=== PATIENT | female | born 1995 | race Caucasian/White ===

== ENCOUNTER 2018-01-31 15:14 | Emergency (ER) | payer OTHER, MEDICAID ==
[~2018-01-31] VITALS: Ht 149.9 cm; Wt 58.6 kg
[~2018-01-31 15:14] MED LIST: ASPI-621 PO; PRED10TA PO
[2018-01-31 17:41] VITALS: BP 108/72
== END 2018-01-31 18:52 | disposition home or self-care (01) ==
LOC: ED 16:45
DX: R51 Headache (principal)
CPT/HCPCS: 70250; 70450; 71045; 72040; 74018; 99284

== ENCOUNTER 2018-07-24 10:05 | Day surgery (SDC) | payer OTHER, MEDICAID ==
[~2018-07-24] VITALS: Ht 149.9 cm; Wt 54.8 kg
[~2018-07-24 10:05] MED LIST changes: -ASPI-621 PO; +ASPI81TA45 PO
[2018-07-24] MEDS ORDERED: LACTATED RINGERS 1,000 ML IV SCH (10:33)
[2018-07-24 10:59] VITALS: BP 121/83
[2018-07-24] MEDS ORDERED: LIDOCAINE-MPF 1%, 2ML INFIL ONE (11:00)
[2018-07-24] MEDS ORDERED: PLEASE ENTER HEIGHT AND WEIGHT MC SCH (11:00)
[2018-07-24 11:02] LABS: HCG UR SG 1.001 (1.003-1.030)
[2018-07-24] MEDS ORDERED: HYDR-3059 PO (11:16)
[2018-07-24] MEDS ORDERED: CELE400C PO (11:16)
[2018-07-24] MEDS ORDERED: CITA20TA6 PO (11:16)
[2018-07-24] MEDS ORDERED: LEVO50TA PO (11:16)
[2018-07-24] MEDS ORDERED: PROPOFOL 10 MG/ML, 50ML ONE (12:15)
[2018-07-24] MEDS ORDERED: ALBUTEROL SULFATE 2.5 MG/3 ML ONE (13:49)
[2018-07-24] MEDS ORDERED: ALBUTEROL SULFATE 2.5 MG/3 ML NPPB PRN (14:00)
== END 2018-07-24 15:50 | disposition home or self-care (01) ==
LOC: OUT 10:05
PROVIDERS: ATTEND Internal Medicine
DX: D12.6 Benign neoplasm of colon, unspecified (principal); D12.0 Benign neoplasm of cecum; D12.8 Benign neoplasm of rectum; K31.7 Polyp of stomach and duodenum; E03.9 Hypothyroidism, unspecified; Z79.890 Hormone replacement therapy; Z79.1 Long term (current) use of non-steroidal anti-inflammatories (NSAID); Z86.010 Personal history of colon polyps; Z86.73 Personal history of transient ischemic attack (TIA), and cerebral infarction without residual deficits; Z98.890 Other specified postprocedural states; Z80.8 Family history of malignant neoplasm of other organs or systems
CPT/HCPCS: 43239; 45380; 81025; 88305; 94640; J2704; J7613

== ENCOUNTER 2018-11-12 17:33 | Inpatient (IN) | payer OTHER, MEDICAID ==
[~2018-11-12] VITALS: Ht 149.9 cm; Wt 61.2 kg
[~2018-11-12 17:33] MED LIST changes: +CELE400C PO; +CITA20TA6 PO; +HYDR-3059 PO; +LEVO50TA PO
--- NOTE | 2018-11-12 17:55 | NUR ---
PATIENT PRESENTS TO ED TODAY FOR WORSENING PAIN AFTER COLECTOMY LAST WEEK. AWAITING MD ORDERS, CALL LIGHT WITHIN REACH. MOTHER AT BEDSIDE.
[2018-11-12] MEDS ORDERED: ONDANSETRON 2MG/ML, 2ML ONE (18:51)
[2018-11-12] MEDS ORDERED: MORPHINE SULFATE 4 MG/ML, 1ML ONE (18:52)
[2018-11-12] MEDS ORDERED: ONDANSETRON 2MG/ML, 2ML IVPush ONE (19:00)
[2018-11-12] MEDS ORDERED: SODIUM CHLORIDE FLUSH 10ML SYR IVF ONE (19:00)
[2018-11-12] MEDS ORDERED: MORPHINE SULFATE 4 MG/ML, 1ML IVPush PRN (19:00)
--- NOTE | 2018-11-12 19:05 | NUR ---
Pt medicated per may. States pain not decreased still. Pt tachycardic. aware. Awaiting new orders. Vs otherwise stable.
[2018-11-12] MEDS ORDERED: SODIUM CHLORIDE 0.9% 1,000ML IVBOLUS ONE (19:30)
[2018-11-12 19:32] LABS: BASOPHILS # (AUTO) 0.04 x10^3/uL (0-0.1); BASOPHILS % (AUTO) 0 % (0-1); EOSINOPHILS % (AUTO) 5 % (1-7); LYMPHOCYTES # (AUTO) 1.22 x10^3/uL (1-3.4); LYMPHOCYTES % (AUTO) 9 % (22-44); MD NO; MEAN CORPUSCULAR HEMOGLOBIN 29.5 pg (27.0-34.8); MEAN CORPUSCULAR HGB CONC 33.2 g/dL (32.4-35.8); MEAN CORPUSCULAR VOLUME 88.7 fL (80-100); MEAN PLATELET VOLUME 7.6 fL (7.4-10.4); MONOCYTES # (AUTO) 1.05 x10^3/uL (0.2-0.8); MONOCYTES % (AUTO) 8 % (2-9); NEUTROPHILS # (AUTO) 10.16 x10^3/uL (1.8-6.8); NEUTROPHILS % (AUTO) 78 % (42-75); PLATELET COUNT 472 x10^3/uL (130-400); RED BLOOD COUNT 3.82 x10^6/uL (3.82-5.3)
[2018-11-12 19:35] LABS: ALBUMIN 2.8 g/dL (3.4-5.0); ANION GAP 7 mmol/L (5-15); CHLORIDE 104 mmol/L (98-107)
--- NOTE | 2018-11-12 19:50 | NUR ---
Pt states a decrease in pain and appears to be resting comfortably on gurney watching tv. Mother still at bedside. Awaiting ct.
--- NOTE | 2018-11-12 20:10 | NUR ---
Back from ct. Given warm blanket per request. No other immediate needs.
--- NOTE | 2018-11-12 22:07 | NUR ---
ordered 2 more cts. Awaiting cts at this time.
[2018-11-12] MEDS ORDERED: GASTROGRAFIN 120 ML SOLN PO ONE (22:17)
[2018-11-12] MEDS ORDERED: PIPERACILLIN/TAZO/PMX 3.375GM 50 ML ONE (22:41)
[2018-11-12] MEDS ORDERED: PIPERACILLIN/TAZO/PMX 3.375GM 50 ML IV ONE (23:00)
[2018-11-12] MEDS ORDERED: BUPIVACAINE/PF 0.5% ONE (23:56)
[2018-11-12] MEDS ORDERED: EPINEPHRINE 1 MG/ML, 1ML ONE (23:57)
[2018-11-13] VITALS (7 sets, daily range): BP systolic 112–138; BP diastolic 64–94
[2018-11-13] MEDS ORDERED: HYDROCORTISONE 100 MG INJ. ONE (00:33)
[2018-11-13] MEDS ORDERED: FENTANYL PF 250 MCG/5ML ONE (00:35)
[2018-11-13] MEDS ORDERED: SUGAMMADEX 200 MG/2 ML IVPush ONE (00:35)
[2018-11-13] MEDS ORDERED: LIDOCAINE GEL 2%, 5ML ONE (00:36)
[2018-11-13] MEDS ORDERED: BUPIVACAINE/PF-EPI 0.5% 1:200K INFIL ONE (01:23)
[2018-11-13] MEDS ORDERED: DIAZEPAM 5 MG/ML, 2ML IVPush PRN (01:30)
[2018-11-13] MEDS ORDERED: HYDROmorphone 2 MG/ML, 1ML IVPush PRN (01:30)
[2018-11-13] MEDS ORDERED: MIDAZOLAM 1 MG/ML, 2ML IV PRN (01:30)
[2018-11-13] MEDS ORDERED: SCOPOLAMINE PATCH, 1.5MG PATCH.TD72 TD PRN (01:30)
[2018-11-13] MEDS ORDERED: PROMETHAZINE 25 MG/ML, 1ML IV PRN (01:30)
[2018-11-13] MEDS ORDERED: MEPERIDINE/PF 25MG/ML,1ML IVPush PRN (01:30)
[2018-11-13] MEDS ORDERED: ALBUTEROL/IPRATROPIUM 2.5MG/0.5MG, 3 ML NPPB PRN (01:30)
[2018-11-13] MEDS ORDERED: METOPROLOL 1 MG/ML, 5ML IV PRN (01:30)
[2018-11-13] MEDS ORDERED: hydrALAzine 20 MG/ML, 1ML IV PRN ×2 (01:30→05:00)
[2018-11-13] MEDS ORDERED: ONDANSETRON 2MG/ML, 2ML IV PRN ×2 (01:30→05:00)
[2018-11-13] MEDS ORDERED: FENTANYL PF 100 MCG/2ML IV PRN (01:30)
[2018-11-13] MEDS ORDERED: SUCCINYLCHOLINE 20 MG/ML, 10ML ONE (01:45)
[2018-11-13] MEDS ORDERED: ROCURONIUM 10MG/ML,5ML ONE (01:45)
[2018-11-13] MEDS ORDERED: ONDANSETRON 2MG/ML, 2ML ONE (01:45)
[2018-11-13] MEDS ORDERED: PROPOFOL 10 MG/ML, 20ML ONE (01:45)
[2018-11-13] MEDS ORDERED: METOPROLOL 1 MG/ML, 5ML ONE (03:30)
[2018-11-13] MEDS ORDERED: DIPHENHYDRAMINE 25 MG CAPSULE PO PRN (05:00)
[2018-11-13] MEDS ORDERED: DIPHENHYDRAMINE 50 MG/ML, 1ML IV PRN (05:00)
[2018-11-13] MEDS ORDERED: LORazepam 2 MG/ML, 1ML IV PRN (05:00)
[2018-11-13] MEDS ORDERED: KETOROLAC 30 MG/1 ML IV PRN (05:00)
[2018-11-13] MEDS ORDERED: LORazepam 1MG TABLET PO PRN (05:00)
[2018-11-13] MEDS ORDERED: ACETAMINOPHEN 650 MG SUPP PR PRN (05:00)
[2018-11-13] MEDS ORDERED: ACETAMINOPHEN 325 MG TABLET PO PRN (05:00)
[2018-11-13] MEDS ORDERED: morphine SULFATE 10 MG/ML, 1ML IV PRN (05:00)
[2018-11-13] MEDS ORDERED: DO NOT STOP ANTIBIOTICS AFTER 24HRS MC SCH (05:00)
[2018-11-13] MEDS ORDERED: ENALAPRILAT 1.25 MG/ML, 2ML IV PRN (05:00)
[2018-11-13] MEDS: PIPERACILLIN/TAZO/PMX 3.375GM 50 ML IV SCH ×4 (05:06→22:55)
[2018-11-13 06:16] LABS: MEAN CORPUSCULAR HEMOGLOBIN 28.9 pg (27.0-34.8); MEAN CORPUSCULAR HGB CONC 32.6 g/dL (32.4-35.8); MEAN CORPUSCULAR VOLUME 88.6 fL (80-100); MEAN PLATELET VOLUME 7.7 fL (7.4-10.4); PLATELET COUNT 538 x10^3/uL (130-400); RED BLOOD COUNT 4.04 x10^6/uL (3.82-5.3); RED CELL DISTRIBUTION WIDTH 16.1 % (9.6-15.2)
[2018-11-13 06:22] LABS: ALBUMIN 1.6 g/dL (3.4-5.0); ANION GAP 7 mmol/L (5-15); CALCIUM 7.7 mg/dL (8.5-10.1); CHLORIDE 109 mmol/L (98-107); CREATININE 0.63 mg/dL (0.55-1.02)
[2018-11-13 06:40] LABS: BASOPHILS # (AUTO) 0.01 x10^3/uL (0-0.1); BASOPHILS % (AUTO) 0 % (0-1); EOSINOPHILS # (AUTO) 0.15 x10^3/uL (0-0.4); EOSINOPHILS % (AUTO) 1 % (1-7); LYMPHOCYTES # (AUTO) 1.28 x10^3/uL (1-3.4); LYMPHOCYTES % (AUTO) 8 % (22-44); MD SCAN; MONOCYTES # (AUTO) 0.84 x10^3/uL (0.2-0.8); MONOCYTES % (AUTO) 5 % (2-9); NEUTROPHILS # (AUTO) 13.81 x10^3/uL (1.8-6.8); NEUTROPHILS % (AUTO) 86 % (42-75)
[2018-11-13] MEDS: LACTATED RINGERS 1,000 ML IV SCH ×2 (08:38→15:30)
[2018-11-13] MEDS: ENOXAPARIN 40 MG/0.4 ML SQ SCH (08:38)
[2018-11-13] MEDS ORDERED: SODIUM CHLORIDE 0.9% 1,000ML IVBOLUS ONE ×2 (10:30→20:00)
[2018-11-13] MEDS ORDERED: TPN PER PHARMACY MC PRN (16:00)
[2018-11-13] MEDS ORDERED: MAGNESIUM SULFATE PMX 2GM/50ML 50 ML IVPB ONE (16:03)
[2018-11-13] MEDS ORDERED: FILTER, DISP 1.2 MICRON FOR TPN/PVN IV PRN (16:30)
[2018-11-13] MEDS ORDERED: AMINO ACID 10% IV SCH (17:00)
[2018-11-13] MEDS ORDERED: DEXTROSE 10% 500 ML IV PRN (17:00)
[2018-11-13] MEDS ORDERED: DEXTROSE 50%, 50ML SYRINGE IVPush PRN (17:00)
[2018-11-13] MEDS ORDERED: FAT EMUL IV SCH (17:00)
[2018-11-13] MEDS ORDERED: SMOF TPN IV SCH (17:00)
[2018-11-13] MEDS ORDERED: [UNRECOGNIZED DRUG - OTHER] IV SCH (17:00)
[2018-11-13] MEDS ORDERED: DEXTROSE 70% IV SCH (17:00)
[2018-11-13] MEDS: INSULIN REGULAR LOW DOSE Q6H X 48HRS SQ-INSULIN SCH (21:30)
[2018-11-13] MEDS ORDERED: BENZOCAINE AEROSOL SPRAY 20%, 60ML TP ONE (23:00)
[2018-11-14] VITALS (12 sets, daily range): BP systolic 102–128; BP diastolic 45–81
[2018-11-14] MEDS: LACTATED RINGERS 1,000 ML IV SCH ×2 (00:43→17:12)
[2018-11-14] MEDS: INSULIN REGULAR LOW DOSE Q6H X 48HRS SQ-INSULIN SCH ×4 (03:26→20:27)
[2018-11-14 03:30] LABS: ALANINE AMINOTRANSFERASE 19 U/L (12-78); ALBUMIN 1.3 g/dL (3.4-5.0); ANION GAP 3 mmol/L (5-15); CALCIUM 7.2 mg/dL (8.5-10.1); CHLORIDE 112 mmol/L (98-107); CREATININE 0.89 mg/dL (0.55-1.02)
[2018-11-14 03:34] LABS: ALKALINE PHOSPHATASE 96 U/L (45-117); BILIRUBIN,TOTAL 0.2 mg/dL (0.2-1.0); PREALBUMIN 8.4 mg/dL (20.0-40.0); TOTAL PROTEIN 4.7 g/dL (6.4-8.2); TRIGLYCERIDES 242 mg/dL (50-200)
[2018-11-14] MEDS: PIPERACILLIN/TAZO/PMX 3.375GM 50 ML IV SCH ×4 (05:08→22:46)
[2018-11-14] MEDS ORDERED: FUROSEMIDE 20 MG/2 ML IV ONE ×2 (05:30→09:30)
[2018-11-14] MEDS: ENOXAPARIN 40 MG/0.4 ML SQ SCH (09:11)
[2018-11-14] MEDS ORDERED: DEXTROSE 70% IV SCH (17:00)
[2018-11-14] MEDS ORDERED: AMINO ACID 10% IV SCH (17:00)
[2018-11-14] MEDS ORDERED: SMOF TPN IV SCH (17:00)
[2018-11-14] MEDS ORDERED: FAT EMUL IV SCH (17:00)
[2018-11-14] MEDS ORDERED: [UNRECOGNIZED DRUG - OTHER] IV SCH (17:00)
[2018-11-15] MEDS: LACTATED RINGERS 1,000 ML IV SCH (02:29)
[2018-11-15] MEDS: INSULIN REGULAR LOW DOSE Q6H X 48HRS SQ-INSULIN SCH ×3 (03:00→15:58)
[2018-11-15 04:04] LABS: ANION GAP 3 mmol/L (5-15); CALCIUM 7.8 mg/dL (8.5-10.1); CHLORIDE 101 mmol/L (98-107); CREATININE 0.57 mg/dL (0.55-1.02)
[2018-11-15 04:07] VITALS: BP 110/71
[2018-11-15] MEDS: PIPERACILLIN/TAZO/PMX 3.375GM 50 ML IV SCH ×4 (04:47→22:58)
[2018-11-15 06:30] VITALS: BP 113/75
[2018-11-15] MEDS: ENOXAPARIN 40 MG/0.4 ML SQ SCH (08:43)
[2018-11-15 13:07] VITALS: BP 119/75
[2018-11-15] MEDS ORDERED: AMINO ACID 10% IV SCH (17:00)
[2018-11-15] MEDS ORDERED: [UNRECOGNIZED DRUG - OTHER] IV SCH (17:00)
[2018-11-15] MEDS ORDERED: FAT EMULSIONS IV SCH (17:00)
[2018-11-15] MEDS ORDERED: DEXTROSE 70% IV SCH (17:00)
[2018-11-15] MEDS: FILTER, DISP 1.2 MICRON FOR TPN/PVN IV PRN (17:16)
[2018-11-15 18:39] VITALS: BP 119/69
[2018-11-15] MEDS: INSULIN REGULAR LOW DOSE QDAY SQ-INSULIN SCH (21:00)
[2018-11-16 03:35] VITALS: BP 129/83
[2018-11-16] MEDS: LACTATED RINGERS 1,000 ML IV SCH (05:08)
[2018-11-16] MEDS: PIPERACILLIN/TAZO/PMX 3.375GM 50 ML IV SCH ×4 (05:09→23:52)
[2018-11-16 05:51] LABS: ANION GAP 6 mmol/L (5-15); CALCIUM 8.6 mg/dL (8.5-10.1); CHLORIDE 100 mmol/L (98-107); CREATININE 0.59 mg/dL (0.55-1.02)
[2018-11-16 08:17] VITALS: BP 125/82
[2018-11-16] MEDS ORDERED: MAGNESIUM SULFATE PMX 2GM/50ML 50 ML IVPB ONE (09:00)
[2018-11-16] MEDS ORDERED: POTASSIUM CHLORIDE 20 MEQ in SODIUM CHLORIDE 0.9% 250 ML IV ONE (09:00)
[2018-11-16] MEDS: ENOXAPARIN 40 MG/0.4 ML SQ SCH (10:38)
[2018-11-16 14:33] VITALS: BP 129/89
[2018-11-16] MEDS ORDERED: FAT EMULSIONS IV SCH (17:00)
[2018-11-16] MEDS ORDERED: AMINO ACID 10% IV SCH (17:00)
[2018-11-16] MEDS ORDERED: DEXTROSE 70% IV SCH (17:00)
[2018-11-16] MEDS ORDERED: [UNRECOGNIZED DRUG - OTHER] IV SCH (17:00)
[2018-11-16] MEDS: FILTER, DISP 1.2 MICRON FOR TPN/PVN IV PRN (17:43)
[2018-11-16 20:54] VITALS: BP 115/73
[2018-11-16] MEDS: INSULIN REGULAR LOW DOSE QDAY SQ-INSULIN SCH (21:00)
[2018-11-17 03:37] VITALS: BP 121/77
[2018-11-17] MEDS: PIPERACILLIN/TAZO/PMX 3.375GM 50 ML IV SCH ×4 (05:31→23:28)
[2018-11-17 06:05] LABS: ANION GAP 5 mmol/L (5-15); CALCIUM 8.7 mg/dL (8.5-10.1); CHLORIDE 102 mmol/L (98-107); CREATININE 0.65 mg/dL (0.55-1.02)
[2018-11-17 07:37] VITALS: BP 114/69
[2018-11-17] MEDS: ENOXAPARIN 40 MG/0.4 ML SQ SCH (09:55)
[2018-11-17] MEDS: LACTATED RINGERS 1,000 ML IV SCH (11:18)
[2018-11-17 14:19] VITALS: BP 108/75
[2018-11-17] MEDS ORDERED: DEXTROSE 70% IV SCH (17:00)
[2018-11-17] MEDS ORDERED: [UNRECOGNIZED DRUG - OTHER] IV SCH (17:00)
[2018-11-17] MEDS ORDERED: AMINO ACID 10% IV SCH (17:00)
[2018-11-17] MEDS ORDERED: FAT EMULSIONS IV SCH (17:00)
[2018-11-17] MEDS: FILTER, DISP 1.2 MICRON FOR TPN/PVN IV PRN (17:34)
[2018-11-17 19:30] VITALS: BP 110/72
[2018-11-17] MEDS: INSULIN REGULAR LOW DOSE QDAY SQ-INSULIN SCH (23:37)
[2018-11-18 01:13] VITALS: BP 111/69
[2018-11-18] MEDS: PIPERACILLIN/TAZO/PMX 3.375GM 50 ML IV SCH ×3 (06:03→17:49)
[2018-11-18 06:41] LABS: ANION GAP 5 mmol/L (5-15); CHLORIDE 101 mmol/L (98-107); CREATININE 0.63 mg/dL (0.55-1.02)
[2018-11-18 06:42] VITALS: BP 109/70
[2018-11-18] MEDS: ENOXAPARIN 40 MG/0.4 ML SQ SCH (11:30)
[2018-11-18 14:21] VITALS: BP 113/67
[2018-11-18] MEDS ORDERED: [UNRECOGNIZED DRUG - OTHER] IV SCH (17:00)
[2018-11-18] MEDS ORDERED: AMINO ACID 10% IV SCH (17:00)
[2018-11-18] MEDS ORDERED: DEXTROSE 70% IV SCH (17:00)
[2018-11-18] MEDS ORDERED: FAT EMULSIONS IV SCH (17:00)
[2018-11-18] MEDS: FILTER, DISP 1.2 MICRON FOR TPN/PVN IV PRN (17:49)
[2018-11-18 19:15] VITALS: BP 111/68
[2018-11-18] MEDS: INSULIN REGULAR LOW DOSE QDAY SQ-INSULIN SCH (21:00)
[2018-11-19] MEDS: PIPERACILLIN/TAZO/PMX 3.375GM 50 ML IV SCH ×4 (00:11→19:27)
[2018-11-19 02:03] VITALS: BP 121/69
[2018-11-19 06:48] LABS: ALBUMIN 2.4 g/dL (3.4-5.0); ANION GAP 5 mmol/L (5-15); CALCIUM 9.2 mg/dL (8.5-10.1); CHLORIDE 102 mmol/L (98-107)
[2018-11-19 06:55] LABS: ALANINE AMINOTRANSFERASE 100 U/L (12-78); ALKALINE PHOSPHATASE 197 U/L (45-117); BILIRUBIN,TOTAL 0.6 mg/dL (0.2-1.0); CREATININE 0.75 mg/dL (0.55-1.02); PREALBUMIN 23.1 mg/dL (20.0-40.0); TOTAL PROTEIN 7.4 g/dL (6.4-8.2)
[2018-11-19 08:30] VITALS: BP 129/76
[2018-11-19] MEDS: LEVOTHYROXINE 50 MCG TABLET PO SCH (09:02)
[2018-11-19] MEDS: ENOXAPARIN 40 MG/0.4 ML SQ SCH (09:02)
[2018-11-19] MEDS: CITALOPRAM 20 MG TABLET PO SCH (09:03)
[2018-11-19 12:42] VITALS: BP 120/80
[2018-11-19] MEDS ORDERED: AMINO ACID 10% IV SCH (17:00)
[2018-11-19] MEDS ORDERED: [UNRECOGNIZED DRUG - OTHER] IV SCH (17:00)
[2018-11-19] MEDS ORDERED: DEXTROSE 70% IV SCH (17:00)
[2018-11-19] MEDS ORDERED: FAT EMULSIONS IV SCH (17:00)
[2018-11-19] MEDS: FILTER, DISP 1.2 MICRON FOR TPN/PVN IV PRN (17:16)
[2018-11-19 19:30] VITALS: BP 116/77
[2018-11-19] MEDS: INSULIN REGULAR LOW DOSE QDAY SQ-INSULIN SCH (20:19)
[2018-11-20 00:30] VITALS: BP 125/73
[2018-11-20] MEDS: PIPERACILLIN/TAZO/PMX 3.375GM 50 ML IV SCH ×4 (01:44→20:13)
[2018-11-20] MEDS: LEVOTHYROXINE 50 MCG TABLET PO SCH (06:53)
[2018-11-20 06:55] LABS: ANION GAP 7 mmol/L (5-15); CALCIUM 9.2 mg/dL (8.5-10.1); CHLORIDE 102 mmol/L (98-107)
[2018-11-20 07:31] VITALS: BP 125/84
[2018-11-20] MEDS: ENOXAPARIN 40 MG/0.4 ML SQ SCH (07:37)
[2018-11-20] MEDS: CITALOPRAM 20 MG TABLET PO SCH (07:37)
[2018-11-20] MEDS ORDERED: OXYcodone/APAP 5/325MG TABLET PO PRN (08:00)
[2018-11-20 12:32] VITALS: BP 136/90
[2018-11-20] MEDS ORDERED: DEXTROSE 70% IV SCH (17:00)
[2018-11-20] MEDS ORDERED: [UNRECOGNIZED DRUG - OTHER] IV SCH (17:00)
[2018-11-20] MEDS ORDERED: FAT EMULSIONS IV SCH (17:00)
[2018-11-20] MEDS ORDERED: AMINO ACID 10% IV SCH (17:00)
[2018-11-20 18:24] VITALS: BP 132/84
[2018-11-20] MEDS: INSULIN REGULAR LOW DOSE QDAY SQ-INSULIN SCH (20:51)
[2018-11-21 01:18] VITALS: BP 118/72
[2018-11-21] MEDS: PIPERACILLIN/TAZO/PMX 3.375GM 50 ML IV SCH ×2 (01:48→07:32)
[2018-11-21] MEDS: LEVOTHYROXINE 50 MCG TABLET PO SCH (05:28)
[2018-11-21 06:02] LABS: MEAN CORPUSCULAR HEMOGLOBIN 28.8 pg (27.0-34.8); MEAN CORPUSCULAR HGB CONC 32.6 g/dL (32.4-35.8); MEAN CORPUSCULAR VOLUME 88.5 fL (80-100); MEAN PLATELET VOLUME 8.5 fL (7.4-10.4); PLATELET COUNT 970 x10^3/uL (130-400); RED BLOOD COUNT 2.87 x10^6/uL (3.82-5.3); RED CELL DISTRIBUTION WIDTH 15.9 % (9.6-15.2)
[2018-11-21 06:29] LABS: BASOPHILS # (AUTO) 0.03 x10^3/uL (0-0.1); BASOPHILS % (AUTO) 0 % (0-1); EOSINOPHILS # (AUTO) 0.84 x10^3/uL (0-0.4); EOSINOPHILS % (AUTO) 5 % (1-7); LYMPHOCYTES # (AUTO) 1.57 x10^3/uL (1-3.4); LYMPHOCYTES % (AUTO) 10 % (22-44); MD SCAN; MONOCYTES # (AUTO) 1.63 x10^3/uL (0.2-0.8); MONOCYTES % (AUTO) 10 % (2-9); NEUTROPHILS # (AUTO) 11.99 x10^3/uL (1.8-6.8); NEUTROPHILS % (AUTO) 75 % (42-75)
[2018-11-21 07:00] VITALS: BP 131/80
[2018-11-21] MEDS: CITALOPRAM 20 MG TABLET PO SCH (07:32)
[2018-11-21] MEDS: ENOXAPARIN 40 MG/0.4 ML SQ SCH (07:32)
[2018-11-21] MEDS ORDERED: AMOX1TAB64 PO (09:28)
[2018-11-21 10:27] VITALS: BP 124/69
[2018-11-28] MEDS ORDERED: PRED5TAB PO (22:10)
[2018-12-02] MEDS ORDERED: PANT20TA3 PO (13:41)
== END 2018-11-21 11:06 | disposition home health service (06) | DRG 329 ==
LOC: ED 22:28 → EDIP 11-13 02:05 → 4NE 11-13 03:53 → DCLOUNGE 11-21 10:49
PROVIDERS: ADMIT Colon & Rectal Surgery; ATTEND Colon & Rectal Surgery
PROC: B5181ZA Fluoroscopy of Superior Vena Cava using Low Osmolar Contrast, Guidance (ICD-10-PCS; 2018-11-13)
PROC: B548ZZA Ultrasonography of Superior Vena Cava, Guidance (ICD-10-PCS; 2018-11-13)
PROC: 0D9670Z Drainage of Stomach with Drainage Device, Via Natural or Artificial Opening (ICD-10-PCS; 2018-11-13)
PROC: 0D1B0Z4 Bypass Ileum to Cutaneous, Open Approach (ICD-10-PCS; 2018-11-13)
PROC: 0DJW4ZZ Inspection of Peritoneum, Percutaneous Endoscopic Approach (ICD-10-PCS; 2018-11-13)
PROC: 02HV33Z Insertion of Infusion Device into Superior Vena Cava, Percutaneous Approach (ICD-10-PCS; principal; 2018-11-13 00:15)
DX: K91.89 Other postprocedural complications and disorders of digestive system (principal); K65.9 Peritonitis, unspecified; K63.1 Perforation of intestine (nontraumatic); K63.0 Abscess of intestine; K56.7 Ileus, unspecified; Z86.73 Personal history of transient ischemic attack (TIA), and cerebral infarction without residual deficits; Z98.2 Presence of cerebrospinal fluid drainage device; Z85.841 Personal history of malignant neoplasm of brain; D72.829 Elevated white blood cell count, unspecified; N73.9 Female pelvic inflammatory disease, unspecified; Y83.2 Surgical operation with anastomosis, bypass or graft as the cause of abnormal reaction of the patient, or of later complication, without mention of misadventure at the time of the procedure
CPT/HCPCS: 36415; 36600; 74250; 74270; 99291; J3475; S0020; 36573; 71045; 74177; 80048; 80053; 82040; 82803; 82962; 83605; 83735; 84100; 84134; 84478; 85025; 88304; 93005; G0378; J0171; J0610; J1650; J1815; J2270; J2405; J2543; J2704; J3010; J3480; Q9963; C1751; J0330; J1200; J1720; J1940; J3420; J7030; J7050; J7120

== ENCOUNTER → 2019-01-25 | Outpatient (CLI) | payer OTHER, MEDICAID ==
[~2019-01-25] MED LIST changes: +AMOX1TAB64 PO; +PANT20TA3 PO; +PRED5TAB PO
== END | disposition home or self-care (01) ==
LOC: PETCFH 13:33
PROVIDERS: ATTEND Nurse Practitioner Family
DX: K76.89 Other specified diseases of liver (principal)
CPT/HCPCS: 78815; A9552

== ENCOUNTER 2019-02-21 09:32 | Emergency (ER) | payer OTHER, MEDICAID ==
[~2019-02-21] VITALS: Ht 149.9 cm; Wt 49.3 kg
[2019-02-21 09:47] VITALS: BP 112/71
[2019-02-21 10:27] LABS: BASOPHILS # (AUTO) 0.12 x10^3/uL (0-0.1); BASOPHILS % (AUTO) 2 % (0-1); EOSINOPHILS # (AUTO) 0.35 x10^3/uL (0-0.4); EOSINOPHILS % (AUTO) 6 % (1-7); LYMPHOCYTES # (AUTO) 1.67 x10^3/uL (1-3.4); LYMPHOCYTES % (AUTO) 27 % (22-44); MD NO; MEAN CORPUSCULAR HEMOGLOBIN 26.7 pg (27.0-34.8); MEAN CORPUSCULAR HGB CONC 32.2 g/dL (32.4-35.8); MEAN PLATELET VOLUME 9.9 fL (7.4-10.4); MONOCYTES # (AUTO) 0.45 x10^3/uL (0.2-0.8); MONOCYTES % (AUTO) 7 % (2-9); NEUTROPHILS # (AUTO) 3.58 x10^3/uL (1.8-6.8); NEUTROPHILS % (AUTO) 58 % (42-75); PLATELET COUNT 338 x10^3/uL (130-400); RED BLOOD COUNT 5.26 x10^6/uL (3.82-5.3); RED CELL DISTRIBUTION WIDTH 17.2 % (9.6-15.2)
[2019-02-21 10:34] LABS: ALBUMIN 4.4 g/dL (3.4-5.0); ANION GAP 10 mmol/L (5-15); CALCIUM 9.4 mg/dL (8.5-10.1); CHLORIDE 104 mmol/L (98-107)
[2019-02-21 10:38] LABS: ALANINE AMINOTRANSFERASE 88 U/L (12-78); ALKALINE PHOSPHATASE 114 U/L (45-117); BILIRUBIN,TOTAL 0.5 mg/dL (0.2-1.0); CREATININE 1.02 mg/dL (0.55-1.02); TOTAL PROTEIN 8.4 g/dL (6.4-8.2)
== END 2019-02-21 13:03 | disposition left against medical advice (07) ==
LOC: ED 12:57
DX: K94.01 Colostomy hemorrhage (principal)
CPT/HCPCS: 36415; 80053; 83690; 85025; 99283